=== PATIENT | male | born 1955 ===

== ENCOUNTER 2023-11-30 04:43 | Day surgery (SDC) | payer OTHER, BC ==
[2023-11-29 09:21] VITALS: BMI 30.7
[2023-11-30] MEDS ORDERED: LIDOCAINE HCL/PF 2% SDV 5ML VIAL ONE (07:30)
[2023-11-30] MEDS ORDERED: MIDAZOLAM HCL 2 MG/2 ML SINGLE DOSE VIAL ONE (07:31)
[2023-11-30] MEDS ORDERED: PROPOFOL 40 ML ONE (07:31)
[2023-11-30] MEDS: ceFAZolin SODIUM 1 GM VIAL IVPB ONE (07:40)
[2023-11-30] MEDS ORDERED: LIDOCAINE HCL 2% JELLY 11 ML TP ONE (07:52)
[2023-11-30] MEDS: GENTAMICIN SO4 80 MG/2 ML VIAL IVPB ONE (08:15)
[2023-11-30] MEDS: LIDOCAINE HCL 2% JELLY (5 ML/TUBE) TP ONE (08:27)
[2023-11-30] MEDS ORDERED: LACTATED RINGERS SOLUTION 1,000 ML IV SCH (08:45)
[2023-11-30 12:37] VITALS: BP 124/76; PULSE 71; RESP 18; TEMP 97.6
== END 2023-11-30 12:35 | disposition home or self-care (01) ==
LOC: JASU-SURG 04:43
PROVIDERS: ATTEND Urology
PROC: 0T7D8ZZ Dilation of Urethra, Via Natural or Artificial Opening Endoscopic (ICD-10-PCS; 2023-11-30)
PROC: 0VT08ZZ Resection of Prostate, Via Natural or Artificial Opening Endoscopic (ICD-10-PCS; principal; 2023-11-30 07:30)
DX: N35.819 Other urethral stricture, male, unspecified site (principal); N40.0 Benign prostatic hyperplasia without lower urinary tract symptoms; R33.8 Other retention of urine; N42.89 Other specified disorders of prostate; N34.2 Other urethritis
CPT/HCPCS: 88305-TC; 88342-TC; 94760